=== PATIENT | male | born 1965 | race Two or more races ===

== ENCOUNTER 2022-08-13 22:58 | Inpatient (IN) | payer OTHER ==
[~2022-08-13] VITALS: Ht 172.7 cm; Wt 60.2 kg
[2022-08-13] MEDS ORDERED: ACCU-CHEK COMFORT CURVE STRIP VI ONE (23:15)
[2022-08-13 23:31] LABS: Basophils # (auto) 0 10 ^3/uL (0-0.2); Basophils % (auto) 0.4 % (0.0-2.0); Eosinophils # (auto) 0.2 10 ^3/uL (0-0.8); Eosinophils % (auto) 3.7 % (0.0-7.0); Hematocrit 32.3 % (41.0-53.0); Hemoglobin 10.6 g/dL (13.5-17.5); Lymphocytes % (auto) 33.2 % (10.0-50.0); Mean Corpuscular Hemoglobin 28.7 pg (28.0-32.0); Mean Corpuscular Hgb Conc. 32.8 g/dL (32.0-36.0); Mean Corpuscular Volume 87.5 fL (80.0-100.0); Monocytes # (auto) 0.9 10 ^3/uL (0-1.3); Neutrophils # (auto) 2.9 10 ^3/uL (1.6-8.6); Neutrophils % (auto) 47.7 % (37.0-80.0); Red Blood Cells 3.69 10^6/uL (4.5-5.90); Red Cell Distribution Width 15.8 % (11.8-14.3)
[2022-08-13] MEDS ORDERED: LACTATED RINGER'S 1,000 ML IV ONE (23:45)
[2022-08-13] MEDS ORDERED: DEXTROSE 10% 250 ML IV ONE ×2 (23:45)
[2022-08-13 23:46] LABS: INR 1.05 (0.9-1.15); Partial Thromboplastin Time 32.5 SEC (24.5-34.5)
[2022-08-14 00:07] LABS: Albumin 3.4 g/dL (3.4-5.0); BUN/Creatinine Ratio 25.2 (10.0-20.0); Calcium 8.4 mg/dL (8.5-10.1); Potassium 3.2 mmol/L (3.5-5.1)
[2022-08-14 00:10] LABS: Bilirubin, Total 0.4 mg/dL (0.2-1.0); Total Protein 6.8 g/dL (6.4-8.2)
[2022-08-14] MEDS ORDERED: SODIUM CHLORIDE 0.9% 1,000 ML IV ONE (00:30)
[2022-08-14] MEDS ORDERED: KETOROLAC TROMETH 30 MG/ML 1ML VIAL IV ONE (02:00)
[2022-08-14 02:48] LABS: Urine Bacteria NONE SEEN /hpf (None Seen); Urine Blood Negative /uL (Negative); Urine Hyaline Cast FEW /lpf (0 - 2); Urine Specific Gravity 1.019 (1.001-1.035); Urine WBC 1 /hpf (0 - 3)
[2022-08-14] MEDS ORDERED: ALBUMIN 25% 100 ML IV ONE (03:15)
[2022-08-14] MEDS ORDERED: FLUT1AER3 IN (05:18)
[2022-08-14] MEDS ORDERED: DULO60CA41 PO (05:18)
[2022-08-14] MEDS ORDERED: SACU1TAB4 PO (05:18)
[2022-08-14] MEDS ORDERED: EMPA1TAB3 PO (05:18)
[2022-08-14] MEDS ORDERED: ASPI-543 PO (05:18)
[2022-08-14] MEDS ORDERED: FURO40TA4 PO (05:18)
[2022-08-14] MEDS ORDERED: TIMO0.5S66 EACHEYE (05:18)
[2022-08-14] MEDS ORDERED: MIRT1TAB38 PO (05:18)
[2022-08-14] MEDS ORDERED: BRIM0.159 OP (05:18)
[2022-08-14] MEDS ORDERED: MIRT-94 PO (05:18)
[2022-08-14] MEDS ORDERED: HYDR-4798 PO (05:18)
[2022-08-14] MEDS ORDERED: HYDR-4227 PO (05:18)
[2022-08-14] MEDS ORDERED: GABA-1250 PO (05:18)
[2022-08-14] MEDS ORDERED: TAMS0.4C36 PO (05:18)
[2022-08-14] MEDS ORDERED: INSLANTI SC (05:18)
[2022-08-14] MEDS ORDERED: METO-289 PO (05:18)
[2022-08-14] MEDS ORDERED: INSLISPI SC ×3 (05:18)
[2022-08-14] MEDS ORDERED: NITROGLYCERIN 0.4 MG SL TAB SL PRN (05:30)
[2022-08-14] MEDS ORDERED: MORPHINE SULFATE INJ 2 MG/ml SYRG IV PRN (05:30)
[2022-08-14] MEDS ORDERED: ACETAMINOPHEN 325 MG TAB PO PRN (05:30)
[2022-08-14] MEDS ORDERED: ONDANSETRON HCL 4 MG/2 ML VIAL IV PRN (05:30)
[2022-08-14] MEDS ORDERED: DEXTROSE (50%) 50ML SYRG IV PRN (05:30)
[2022-08-14] MEDS ORDERED: DOCUSATE SOD 100 MG CAP PO PRN (05:30)
[2022-08-14] MEDS ORDERED: POTASSIUM CHL 20 Meq TABLET PO ONE (05:45)
[2022-08-14] MEDS: SODIUM CHLOR 0.9% PF (SALINE LOCK) 10ML VIAL/SYR IV SCH ×3 (06:20→21:50)
[2022-08-14] MEDS: ACCU-CHEK COMFORT CURVE STRIP VI SCH ×4 (06:34→22:04)
[2022-08-14] MEDS: InsuLIN REG 1unit/0.01ml Soln (100units/ml) SC SCH ×3 (06:35→17:17)
[2022-08-14] MEDS: HYDROcodone-ACET 5/325MG TAB PO PRN ×3 (06:36→21:01)
[2022-08-14 07:04] LABS: Basophils # (auto) 0 10 ^3/uL (0-0.2); Basophils % (auto) 0.7 % (0.0-2.0); Eosinophils # (auto) 0.3 10 ^3/uL (0-0.8); Hematocrit 31.4 % (41.0-53.0); Hemoglobin 10.1 g/dL (13.5-17.5); Lymphocytes # (auto) 1.6 10 ^3/uL (0.4-5.4); Lymphocytes % (auto) 24.5 % (10.0-50.0); Mean Corpuscular Hgb Conc. 32.2 g/dL (32.0-36.0); Mean Corpuscular Volume 86.9 fL (80.0-100.0); Monocytes % (auto) 15.4 % (0.0-12.0); Neutrophils # (auto) 3.6 10 ^3/uL (1.6-8.6); Neutrophils % (auto) 55.4 % (37.0-80.0); Red Blood Cells 3.62 10^6/uL (4.5-5.90); Red Cell Distribution Width 16.1 % (11.8-14.3); White Blood Cell 6.4 10^3/uL (4.4-10.8)
[2022-08-14 07:25] LABS: Albumin 2.9 g/dL (3.4-5.0); Calcium 8.2 mg/dL (8.5-10.1); Potassium 4.3 mmol/L (3.5-5.1)
[2022-08-14 07:26] LABS: BUN/Creatinine Ratio 21.1 (10.0-20.0)
[2022-08-14 07:29] LABS: Bilirubin, Total 0.4 mg/dL (0.2-1.0); Total Protein 6.3 g/dL (6.4-8.2)
[2022-08-14] MEDS: ASPirin 81 mg TAB PO SCH (10:04)
[2022-08-14] MEDS ORDERED: amLODIPine BESYLATE 5 MG TAB PO ONE (11:00)
[2022-08-14] MEDS ORDERED: SODIUM CHLORIDE 0.9% 500 ML IV ONE (12:00)
[2022-08-14] MEDS: TAMSULOSIN HYDROCHLORIDE 0.4 MG CAP PO SCH (17:11)
[2022-08-14] MEDS ORDERED: InsuLIN REG 1unit/0.01ml Soln (100units/ml) SC SCH (22:00)
[2022-08-14] MEDS: diphenhdrAMINE HCL 25 MG CAP PO PRN (23:19)
[2022-08-15] MEDS: HYDROcodone-ACET 5/325MG TAB PO PRN ×4 (00:52→16:17)
[2022-08-15] MEDS: diphenhdrAMINE HCL 25 MG CAP PO PRN ×2 (05:36→16:18)
[2022-08-15] MEDS: SODIUM CHLOR 0.9% PF (SALINE LOCK) 10ML VIAL/SYR IV SCH ×2 (05:50→14:23)
[2022-08-15 06:05] LABS: Basophils # (auto) 0 10 ^3/uL (0-0.2); Basophils % (auto) 0.6 % (0.0-2.0); Eosinophils # (auto) 0.2 10 ^3/uL (0-0.8); Eosinophils % (auto) 2.8 % (0.0-7.0); Hematocrit 33.2 % (41.0-53.0); Hemoglobin 10.8 g/dL (13.5-17.5); Lymphocytes # (auto) 1.6 10 ^3/uL (0.4-5.4); Lymphocytes % (auto) 21.8 % (10.0-50.0); Mean Corpuscular Hemoglobin 28.2 pg (28.0-32.0); Mean Corpuscular Hgb Conc. 32.6 g/dL (32.0-36.0); Mean Corpuscular Volume 86.5 fL (80.0-100.0); Monocytes % (auto) 13.6 % (0.0-12.0); Neutrophils # (auto) 4.5 10 ^3/uL (1.6-8.6); Neutrophils % (auto) 61.2 % (37.0-80.0); Nucleated Red Blood Cells % 0.1 %; Red Blood Cells 3.84 10^6/uL (4.5-5.90); Red Cell Distribution Width 15.7 % (11.8-14.3); White Blood Cell 7.4 10^3/uL (4.4-10.8)
[2022-08-15] MEDS: InsuLIN REG 1unit/0.01ml Soln (100units/ml) SC SCH ×3 (06:35→16:40)
[2022-08-15] MEDS: ACCU-CHEK COMFORT CURVE STRIP VI SCH ×3 (06:35→16:37)
[2022-08-15 08:53] VITALS: BP 156/106
[2022-08-15 09:00] VITALS: BP 156/106
[2022-08-15] MEDS: ASPirin 81 mg TAB PO SCH (10:01)
[2022-08-15] MEDS ORDERED: amLODIPine BESYLATE 5 MG TAB PO SCH (12:30)
[2022-08-15 13:00] VITALS: BP 165/105
[2022-08-15] MEDS ORDERED: INSU100I49 SC (13:57)
[2022-08-15] MEDS ORDERED: INSLANTI SC (13:57)
[2022-08-15] MEDS ORDERED: AML5T PO (13:58)
[2022-08-15 14:59] VITALS: BP 165/105
[2022-08-15 17:00] VITALS: BP 154/104
[2022-08-15] MEDS: TAMSULOSIN HYDROCHLORIDE 0.4 MG CAP PO SCH (17:26)
[2022-08-16] MEDS ORDERED: INSULIN LANTUS (GLARGINE) 1 /0.01ml (100units/ml) SC SCH (07:00)
[2022-08-17] MEDS ORDERED: INSU-1224 XX (15:15)
[2022-08-17] MEDS ORDERED: INSU100I4 SC (15:15)
[2022-08-17] MEDS ORDERED: INSU100I68 SC (15:15)
== END 2022-08-15 18:50 | disposition home health service (06) | DRG 316 ==
LOC: EDBD 22:58 → ER 22:58 → TELE 08-14 05:32 → TELE-WESTW 08-15 08:35
PROVIDERS: ADMIT Nurse Practitioner Family; ATTEND Internal Medicine
PROC: 0HQ0XZZ Repair Scalp Skin, External Approach (ICD-10-PCS; principal; 2022-08-14)
DX: I95.89 Other hypotension (principal); E87.6 Hypokalemia; E86.0 Dehydration; E11.649 Type 2 diabetes mellitus with hypoglycemia without coma; S01.01XA Laceration without foreign body of scalp, initial encounter; W01.0XXA Fall on same level from slipping, tripping and stumbling without subsequent striking against object, initial encounter; E11.40 Type 2 diabetes mellitus with diabetic neuropathy, unspecified; N40.0 Benign prostatic hyperplasia without lower urinary tract symptoms; E88.09 Other disorders of plasma-protein metabolism, not elsewhere classified; Y93.89 Activity, other specified; Y92.89 Other specified places as the place of occurrence of the external cause; Y99.8 Other external cause status
CPT/HCPCS: 12002; 36415; 70450; 71045; 80053; 81001; 82962; 83036; 84484; 85025; 85610; 85730; 96361; 96374; 97163; G0378; J1815; J1885; P9047